=== PATIENT | male | born 1950 | race Hispanic/Latino ===

== ENCOUNTER 2017-05-25 11:54 | Emergency (ER) | payer OTHER ==
[~2017-05-25] VITALS: Ht 175.3 cm; Wt 107.5 kg
[2017-05-25 12:07] VITALS: TEMP 98.6
[2017-05-25 12:44] VITALS: BP 128/74
== END 2017-05-25 12:44 | disposition home or self-care (01) ==
LOC: ED 11:54 → EDBD 11:54 → ED 12:44
DX: Z48.02 Encounter for removal of sutures (principal)

== ENCOUNTER 2018-01-21 20:13 | Emergency (ER) | payer OTHER | END 2018-01-21 20:30 | disposition home or self-care (01) | LOC: ED 20:13 | DX: Y83.3 Surgical operation with formation of external stoma as the cause of abnormal reaction of the patient, or of later complication, without mention of misadventure at the time of the procedure (principal) | CPT/HCPCS: 99281 ==

== ENCOUNTER 2018-06-27 08:54 | Outpatient (CLI) | payer OTHER ==
[2018-06-27 10:51] LABS: PLATELET COUNT 168 K/uL (142-355)
[2018-06-27 11:35] LABS: POTASSIUM 4.9 mmol/L (3.6-5.2)
== END 2018-06-27 22:17 | disposition home or self-care (01) ==
LOC: LABW 08:54
PROVIDERS: Internal Medicine
DX: I10 Essential (primary) hypertension (principal); E11.9 Type 2 diabetes mellitus without complications; E78.5 Hyperlipidemia, unspecified
CPT/HCPCS: 36415; 80053; 80061; 82043; 82570; 83036; 85027